=== PATIENT | male | born 1980 | race Caucasian/White ===

== ENCOUNTER → 2018-08-31 12:48 | Outpatient (CLI) | payer OTHER, SELFPAY ==
--- NOTE | 2018-08-31 | DI.MRI.S_ITS ---
PROCEDURE: MR ANKLE LT WO CON INDICATIONS: RIGHT FOOT PAIN TECHNIQUE: Noncontrast sagittal T1 spin echo and T2 fast spin echo with fat saturation, axial proton density fast spin echo and T2 fast spin echo with fat saturation, coronal T1 spin echo and T2 fast spin echo with fat saturation through the ankle/hindfoot. COMPARISON: None. FINDINGS: Image quality: Diagnostic. Bones and joints: There is no acute fracture, dislocation, suspicious osseous lesion, or evidence of avascular necrosis involving the osseous structures of the left midfoot or hindfoot. Ankle mortise is well-maintained. There are no osteochondral defects identified involving the tibial plafond or the talar dome. No significant degenerative changes of the midfoot or hindfoot joints are appreciated. No joint effusions are evident. Medial structures: The deltoid ligament and spring ligament are intact. However, there is slight thickening involving the superomedial band of the spring ligament also demonstrates slight increased signal. The tibialis posterior, flexor digitorum longus, and flexor hallucis longus tendons are intact. Small amount of fluid is contained within the tibialis posterior and flexor digitorum longus tendon sheaths. The posterior tibial nerve appears to be within normal limits there the region of the tarsal tunnel. Lateral structures: The anterior and posterior distal tibiofibular ligaments are intact. The antrum posterior talofibular ligaments are intact. The calcaneofibular ligament is intact. Incidental note is made of an intact peroneus quartus tendon (anatomic variant), which normally inserts onto the tibial tubercle the lateral calcaneus. This tendon is intact and otherwise unremarkable. There is a thickening of the peroneus longus tendon with increased signal evident. There is also increased signal identified involving the peroneus brevis tendon. A small amount of fluid is contained within their corresponding tendon sheaths. No significant hearing is appreciated. There is no edema identified within the region of the sinus tarsi. Anterior structures: The tibialis anterior, extensor hallucis longus, and extensor digitorum longus tendons appear intact. Posterior and plantar structures: Achilles tendon is intact. Mild prominence of the mid aspect of the plantar fascia is identified, demonstrating slight increased signal and measuring up to approximately 4 mm in thickness. IMPRESSION: 1. Mild peroneus longus and peroneus brevis tendinopathy without significant hearing. 2. Possible sprain versus scarring of the spring ligament. 3. Borderline thickening of the medial band of plantar fascia without significant hearing. 4. Minimal fluid within the tibialis posterior and flexor digitorum longus tendon sheaths may be related to tenosynovitis. Please correct clinically. Dictated by: Adrian Zee M.D. on 08/31/2018 at 13:03 Approved by: Adrian Zee M.D. on 08/31/2018 at 13:28
== END ==
PROVIDERS: Visit Provider Podiatrist
DX: M79.671 Pain in right foot (principal)
CPT/HCPCS: 73721

== ENCOUNTER → 2021-08-21 15:49 | Outpatient (CLI) | payer OTHER, SELFPAY ==
--- NOTE | 2021-08-21 | DI.MRI.S_ITS ---
PROCEDURE: MR ANKLE RT WO CON INDICATIONS: Peroneal tendinitis, right leg TECHNIQUE: Noncontrast sagittal T1 spin echo and T2 fast spin echo with fat saturation, axial proton density fast spin echo and T2 fast spin echo with fat saturation, coronal T1 spin echo and T2 fast spin echo with fat saturation through the ankle/hindfoot. COMPARISON: [facility], MR, MR ANKLE LT WO CON, 08/31/2018, 13:08. FINDINGS: Image quality: Excellent. Bones and joints: No bone marrow contusions or fractures. No osteochondral injuries of the talar dome. No pathologic joint effusions. Medial structures: The posterior tibialis, flexor digitorum longus, and flexor hallucis longus tendons are intact. The posterior tibial neurovascular bundle appears normal within the tarsal tunnel, without extrinsic mass effect. The deltoid ligament is intact. The spring ligament is intact. Lateral structures: The anterior talofibular, calcaneofibular, and posterior talofibular ligaments appear intact. More superiorly, the anterior and posterior tibiofibular ligaments appear intact. The tibiofibular syndesmosis is normal in width at 2 mm or less. Split tear of the peroneal brevis in the distal aspect. Thickening of the peroneal longus tendon with partial tear (series 9, image 6; series 10, image 9). The sinus tarsi demonstrates normal fatty signal, without edema, fibrosis, or cyst formation. The dorsal calcaneocuboid ligament appears intact. Anterior structures: The tibialis anterior, extensor hallucis longus, and extensor digitorum longus tendons appear intact. The dorsal talonavicular ligament appears intact. Posterior and plantar structures: Achilles tendon is intact. Persistent thickening of the medial band of the plantar fascia without evidence of tear. No abductor digiti quinti muscle atrophy to suggest Lynn neuropathy. IMPRESSION: 1. Split tear of the distal peroneal brevis tendon. 2. Advanced tendinopathy of the peroneal longus tendon with partial tear. 3. Lateral soft tissue edema. Dictated by: José Miguel Wheeler M.D. on 08/21/2021 at 16:40 Approved by: José Miguel Wheeler M.D. on 08/21/2021 at 16:53
== END ==
PROVIDERS: Referring Provider Podiatrist; Visit Provider Podiatrist
DX: M76.71 Peroneal tendinitis, right leg (principal); M65.871 Other synovitis and tenosynovitis, right ankle and foot; M25.371 Other instability, right ankle; M79.671 Pain in right foot; R60.0 Localized edema
CPT/HCPCS: 73721

== ENCOUNTER → 2022-05-11 11:24 | Outpatient (CLI) | payer OTHER, SELFPAY ==
[2022-05-11 12:27] LABS: COVID19 -Nasal RAPID Negative (Negative)
== END ==
PROVIDERS: Visit Provider Surgery
DX: Z20.822 Contact with and (suspected) exposure to COVID-19 (principal); Z01.812 Encounter for preprocedural laboratory examination
CPT/HCPCS: 87635; C9803

== ENCOUNTER 2022-05-12 08:42 | Day surgery (SDC) | payer OTHER, SELFPAY ==
[2022-05-12] VITALS (7 sets, daily range): BP systolic 102–138; BP diastolic 56–88; PULSE 86–104; RESP 9–96; TEMP 36.4–37.9; O2SAT 16–96; BMI 36.9
--- NOTE | 2022-05-12 | PATH_ITS ---
[facility] Accession Number: [id number] . 01 Material submitted: . PART A: small bowel - SMALL BOWEL BIOPSY PART B: gastrointestinal site - GASTRIC BIOPSY . 01 Clinical history: . A: R/O ___ B: R/O H.PYLORI . 01 Diagnosis: A. Small Bowel, Biopsy: Small bowel mucosa with no diagnostic abnormality. Negative for active inflammation, features of sprue, dysplasia, or malignancy. . B. Stomach, Biopsy: Antral mucosa with mild chronic gastritis. Negative for Helicobacter by immunohistochemistry. Negative for intestinal metaplasia. Negative for dysplasia and malignancy. MRV 05/17/2022 1422 Local . 01 Electronically signed: . Gricelda Agarwal MD, Pathologist NPI- [id number] . 01 Gross description: . Part A: SMALL BOWEL BIOPSY: Received in formalin are 3 fragment(s) of banerjee, soft tissue measuring 0.3 x 0.2 x 0.2 cm to 0.1 x 0.1 x 0.1 cm submitted entirely in 1 cassette(s) Part B: GASTRIC BIOPSY: Received in formalin are 2 fragment(s) of banerjee, soft tissue measuring 0.3 x 0.2 x 0.2 cm to 0.2 x 0.2 x 0.2 cm submitted entirely in 1 cassette(s) /CPE 05/13/2022 0454 Local . 01 Pathologist provided ICD-10: K21.9 . 01 CPT . 807532, [id number], [id number] Performed at: 01 [facility] [address] [place] [address] [address], [place], [place] [id number] MD Kaleb Panchal MD Phone: [phone]
[2022-05-12] MEDS: SODIUM CHLORIDE 0.9% 1,000 ML 70 ML IV (09:10)
--- NOTE | 2022-05-12 09:45 | P.OP.EGD_ITS ---
Operative Date/Time/Diagnoses Date of procedure: 05/12/22 Time of procedure: 09:50 Procedure Notes Procedure in detail: Surgeon: Maritza Quevedo DO Procedure: Esophagogastroduodenoscopy with biopsy Preoperative diagnosis: 1. Symptoms of gastroesophageal reflux, heartburn 2. Atypical chest pain/pressure 3. Epigastric pain Postoperative diagnosis: 1. LA-B esophagitis, lower 3rd of the esophagus 2. Ulcerative gastritis with multiple shallow gastric ulcers, biopsied to rule out H pylori 3. Small hiatal hernia 4. Normal-appearing duodenum, biopsied to rule out celiac sprue Medications: Monitored anesthesia care Preanesthesia Assessment An H and P was performed/updated and the Px?s ASA class is 3. The procedure was discussed in detail with the patient. The potential risks and complications including infection, bleeding, missed lesions, perforation, need for surgery in case of perforation, prolonged hospital stay, and were explained. A brief question and answer period was allotted and once all questions were answered, informed consent was obtained. The patient was brought back to the procedure room and placed on standard monitoring. The patient?s vital signs were monitored continuously throughout the entire procedure. Prior to starting, a timeout was performed to confirm the patient?s identity, allergies, medications, and procedure. Procedure in detail The patient was placed in left lateral decubitus position and a bite block was inserted. The tip of the upper endoscope was placed into the mouth and advanced without difficulty under direct visualization into the esophagus. Esophagus: Erosive esophagitis LA-B noted in the lower 3rd esophagus Stomach: Ulcerative gastritis with shallow ulcerations in the antrum body the stomach, biopsies were obtained to rule out H pylori infection Small hiatal hernia noted on retroflexion Duodenum: Normal appearing duodenal mucosa, biopsied to rule out celiac sprue The patient tolerated the procedure well and will be brought back to the recovery area to be discharged once criteria are met. Complications There were no complications and estimated blood loss was minimal. Recommendations: Resume previous diet Continue outPx medications, recommend proton pump inhibitor such as omeprazole or pantoprazole twice daily until repeat EGD Follow up pathology results Repeat EGD in 8 week to ensure healing of gastric ulcers and esophagitis Office follow up to be arranged, since patient is moving out of state will need to establish care with Gastroenterology in [place]. An emergency contact number was given to the patient for any complications related to the procedure
--- NOTE | 2022-05-12 09:45 | PM.HP.1 ---
History of Present Illness History of Present Illness Date Patient Seen: 05/12/22 Time Patient Seen: 09:30 Chief complaint: SDC Narrative: Patient is a very pleasant 41-year-old male who presented for upper endoscopy. He has increased symptoms of chronic reflux, heartburn, and atypical chest pain. He also describes upper abdominal pressure. At times his swallowing is difficult with large amounts liquid. He denies solid food dysphagia. Patient History Family & Social History Social History: household members spouse Tobacco & Substance use: Tobacco type smokeless tobacco alcohol intake current alcohol intake frequency 0-2 drinks per day Substance Use Type does not use Meds Home Medications and Allergies Home Medications Medication Instructions Recorded Confirmed Type ibuprofen 800 mg tablet 800 mg PO Q8H PRN Pain (Scale 05/12/22 05/12/22 History Score 1-3) lisinopril 20 mg tablet 20 mg PO DAILY 05/12/22 05/12/22 History metformin 500 mg tablet 500 mg PO BID 05/12/22 05/12/22 History Allergies Allergy/AdvReac Type Severity Reaction Status Date / Time empagliflozin Allergy Intermediate Chest Pain Verified 05/12/22 08:57 [From Jardiance] codeine Allergy Unknown Verified 05/12/22 08:57 Penicillins Allergy Unknown Verified 05/12/22 08:57 Review of Systems Review of Systems ROS: Yes All systems reviewed with the patient and are negative except as otherwise documented Exam Vital Signs (past 8 hours): - 05/12/22 09:10 Temperature 97.8 F Pulse Rate 104 H Respiratory Rate 96 H Blood Pressure 138/88 Pulse Oximetry 16 L Oxygen Delivery Method Room Air Oxygen Delivery Method Room Air Const General: cooperative, healthy appearing, comfortable, well developed and No acute distress Resp Effort & Inspection: normal respiratory effort, able to speak in complete sentences and no audible wheezes Auscultation: clear to auscultation bilaterally Cardio Rate: regular rate Rhythm: regular rhythm GI Palpation: soft Auscultation: normal bowel sounds Assessment & Plan Assessment & Plan narrative: 1. EGD today, further recommendations to follow Time Spent With Patient Critical Care time: I spent a total of [] minutes of critical care time on this patient's care today; this time is exclusive of procedural time.
--- NOTE | 2022-05-12 10:39 | SUR.PHASEI ---
1025 late entry patient instructed to use CPAP (states that he uses it routinely) at home today.
== END 2022-05-12 10:45 | disposition home or self-care (01) ==
PROVIDERS: Referring Provider Student in an Organized Health Care Education/Training Program; Visit Provider Student in an Organized Health Care Education/Training Program
PROC: 0DJ08ZZ Inspection of Upper Intestinal Tract, Via Natural or Artificial Opening Endoscopic (ICD-10-PCS; CPT 43235; principal; 2022-05-12 09:30)
DX: K29.50 Unspecified chronic gastritis without bleeding (principal); R07.89 Other chest pain; Z72.0 Tobacco use; K20.90 Esophagitis, unspecified without bleeding; K44.9 Diaphragmatic hernia without obstruction or gangrene
CPT/HCPCS: 43239; J2704